=== PATIENT | female | born 1945 | race African-American/Black ===

== ENCOUNTER 2017-12-13 14:07 | Inpatient (IN) ==
[2017-12-14] MEDS ORDERED: CLOPIDOGREL 75 MG TABLET PO ONE (08:16)
[2017-12-14] MEDS ORDERED: GLUCAGON 1 MG VIAL IM PRN (08:25)
[2017-12-14] MEDS ORDERED: DEXTROSE 50% 25 GM/50 ML VIAL IV PRN (08:25)
[2017-12-14] MEDS ORDERED: MAGNESIUM SULF RIDER 2 GM in PREMIX 1 EACH IV PRN ×2 (08:39→22:11)
[2017-12-14] MEDS ORDERED: MAGNESIUM SULF RIDER 4 GM in PREMIX 1 EACH IV PRN (08:39)
[2017-12-14] MEDS ORDERED: ZALEPLON 5 MG CAPSULE PO PRN (08:39)
[2017-12-14] MEDS ORDERED: ONDANSETRON 4 MG/2 ML VIAL IV PRN (08:39)
[2017-12-14] MEDS ORDERED: CILOSTAZOL 50 MG TABLET PO SCH (09:00)
[2017-12-14] MEDS ORDERED: POTASSIUM CHLORIDE RIDER 10 MEQ in PREMIX 1 EACH IV PRN ×2 (09:04→22:11)
[2017-12-14] MEDS ORDERED: diphenhydrAMINE CAP 25 MG CAPSULE PO ONE (09:04)
[2017-12-14] MEDS ORDERED: FUROSEMIDE 40 MG TABLET PO SCH (09:30)
[2017-12-14] MEDS: amLODIPine 5 MG TABLET PO SCH (10:22)
[2017-12-14] MEDS: ENOXAPARIN 40 MG/0.4 ML SYRINGE SUBCUT SCH (10:22)
[2017-12-14] MEDS: CARBIDOPA/LEVODOPA 25-100 MG TABLET PO SCH ×2 (10:22→21:18)
[2017-12-14] MEDS: RASAGILINE 0.5 MG TABLET PO SCH (10:22)
[2017-12-14] MEDS: PANTOPRAZOLE 40 MG TABLET PO SCH (10:23)
[2017-12-14] MEDS: CHOLECALCIFEROL 1,000 UNIT TABLET PO SCH (10:23)
[2017-12-14] MEDS: ROSUVASTATIN 20 MG TABLET PO SCH (10:23)
[2017-12-14] MEDS: ASPIRIN CHEW 81 MG TABLET PO SCH (10:23)
[2017-12-14] MEDS: VITAMIN E 400 UNIT CAPSULE PO SCH (10:23)
[2017-12-14] MEDS: SODIUM CHLORIDE 0.45% 1,000 ML IV SCH ×2 (10:23→23:34)
[2017-12-14] MEDS: CLOPIDOGREL 75 MG TABLET PO SCH (10:23)
[2017-12-14] MEDS: MULTIVITAMIN (CENTRUM) TABLET PO SCH (10:23)
[2017-12-14] MEDS: INSULIN REGULAR 100 UNIT/ML SUBCUT SCH ×3 (12:25→21:19)
[2017-12-14] MEDS: INSULIN GLARGINE 100 UNIT/ML SUBCUT SCH (21:18)
[2017-12-14] MEDS: CILOSTAZOL 50 MG TABLET PO SCH (21:18)
[2017-12-14] MEDS ORDERED: DIAZEPAM 5 MG TABLET PO ONE (22:30)
[2017-12-15 06:41] LABS: Basophils # 0.1 10*3/uL (0.0-0.2); Basophils % 0.5 % (0.0-0.8); Eosinophils # 0.2 10*3/uL (0.0-0.87); Eosinophils % 1.4 % (0.00-10.9); Hematocrit 30.9 VOL% (35.7-47.0); Hemoglobin 9.6 GM/DL (12.0-16.0); Immature Granulocytes % 0.4 %; Immature Granulocytes Absolute 0.05 #; Lymphocytes # 0.8 10*3/uL (1.4-4.0); Lymphocytes % 6.4 % (21.3-54.2); Mean Corpuscular HGB Conc 31.1 GM/DL (32-36); Mean Corpuscular Hemoglobin 28 PG (27-34); Mean Corpuscular Volume 88.8 FL (87-102); Mean Platelet Volume 11.7 FL (9.6-12.0); Monocytes # 1.1 10*3/uL (0.11-0.8); Monocytes % 8.9 % (1.7-12.7); Neutrophils # 10.2 10*3/uL (1.4-7.4); Neutrophils % 82.4 % (38.7-73.9); Platelet Count 275 T/CUMM (130-400); Red Blood Count 3.48 MC/CUMM (3.8-5.5); Red Cell Distribution Width 13.9 % (9.3-17.3); White Blood Count 12.4 T/CUMM (4-12)
[2017-12-15 07:19] LABS: Osmolality,Calculated 288.5 MOS/KG (273-304); Potassium 3.7 MMOL/L (3.5-5.1)
[2017-12-15 07:41] LABS: Risk Ratio 2.16; VLDL CHOLESTEROL 13.8 MG/DL
[2017-12-15] MEDS ORDERED: DIAZEPAM 5 MG TABLET ONE (08:57)
[2017-12-15] MEDS ORDERED: diphenhydrAMINE CAP 25 MG CAPSULE ONE (08:57)
[2017-12-15] MEDS: amLODIPine 5 MG TABLET PO SCH (12:21)
[2017-12-15] MEDS: CLOPIDOGREL 75 MG TABLET PO SCH (12:21)
[2017-12-15] MEDS: RASAGILINE 0.5 MG TABLET PO SCH (12:21)
[2017-12-15] MEDS: ASPIRIN CHEW 81 MG TABLET PO SCH (12:22)
[2017-12-15] MEDS: CARBIDOPA/LEVODOPA 25-100 MG TABLET PO SCH ×2 (12:22→20:59)
[2017-12-15] MEDS: CILOSTAZOL 50 MG TABLET PO SCH ×2 (12:22→20:59)
[2017-12-15] MEDS: ENOXAPARIN 40 MG/0.4 ML SYRINGE SUBCUT SCH (12:23)
[2017-12-15] MEDS: PANTOPRAZOLE 40 MG TABLET PO SCH (12:23)
[2017-12-15] MEDS: ROSUVASTATIN 20 MG TABLET PO SCH (12:24)
[2017-12-15] MEDS ORDERED: LIDOCAINE 1% 20 ML VIAL ONE (12:50)
[2017-12-15] MEDS ORDERED: HYDROmorphone 2 MG/1 ML VIAL ONE ×2 (12:56→14:33)
[2017-12-15] MEDS ORDERED: MIDAZOLAM 2 MG/2 ML VIAL ONE (12:57)
[2017-12-15] MEDS ORDERED: HEPARIN 5,000 UNIT/1 ML VIAL ONE ×2 (13:08→13:25)
[2017-12-15] MEDS ORDERED: NITROGLYCERIN 2% OINT 1 INCH/GM PACK TOP ONE (14:01)
[2017-12-15] MEDS ORDERED: TIROFIBAN 5,000 MCG/100 ML PREMIX IV ONE (14:12)
[2017-12-15] MEDS ORDERED: NITROGLYCERIN SL 0.4 MG TABLET SL PRN (14:43)
[2017-12-15] MEDS ORDERED: ACETAMINOPHEN 325 MG TABLET PO PRN (14:43)
[2017-12-15] MEDS ORDERED: HYDROmorphone 2 MG/1 ML VIAL IV PRN (14:43)
[2017-12-15] MEDS: MULTIVITAMIN (CENTRUM) TABLET PO SCH (15:25)
[2017-12-15] MEDS: INSULIN REGULAR 100 UNIT/ML SUBCUT SCH ×4 (17:06→20:57)
[2017-12-15] MEDS: VITAMIN E 400 UNIT CAPSULE PO SCH (17:09)
[2017-12-15] MEDS: CHOLECALCIFEROL 1,000 UNIT TABLET PO SCH (17:10)
[2017-12-15] MEDS: SODIUM CHLORIDE 0.45% 1,000 ML IV SCH (18:42)
[2017-12-15] MEDS: INSULIN GLARGINE 100 UNIT/ML SUBCUT SCH (20:57)
[2017-12-16] MEDS: SODIUM CHLORIDE 0.45% 1,000 ML IV SCH ×2 (01:00→14:56)
[2017-12-16 06:20] LABS: Basophils # 0.1 10*3/uL (0.0-0.2); Basophils % 0.4 % (0.0-0.8); Eosinophils # 0.1 10*3/uL (0.0-0.87); Eosinophils % 0.5 % (0.00-10.9); Hematocrit 27.7 VOL% (35.7-47.0); Hemoglobin 8.8 GM/DL (12.0-16.0); Immature Granulocytes % 0.6 %; Immature Granulocytes Absolute 0.07 #; Lymphocytes # 0.9 10*3/uL (1.4-4.0); Lymphocytes % 8.4 % (21.3-54.2); Mean Corpuscular HGB Conc 31.8 GM/DL (32-36); Mean Corpuscular Hemoglobin 28 PG (27-34); Mean Corpuscular Volume 87.1 FL (87-102); Mean Platelet Volume 11.5 FL (9.6-12.0); Monocytes # 1.1 10*3/uL (0.11-0.8); Monocytes % 9.8 % (1.7-12.7); Neutrophils % 80.3 % (38.7-73.9); Platelet Count 290 T/CUMM (130-400); Red Blood Count 3.18 MC/CUMM (3.8-5.5); Red Cell Distribution Width 14.2 % (9.3-17.3); White Blood Count 11.2 T/CUMM (4-12)
[2017-12-16 06:57] LABS: Osmolality,Calculated 291.5 MOS/KG (273-304)
[2017-12-16] MEDS: INSULIN REGULAR 100 UNIT/ML SUBCUT SCH ×4 (08:11→21:25)
[2017-12-16] MEDS: VITAMIN E 400 UNIT CAPSULE PO SCH (09:46)
[2017-12-16] MEDS: ROSUVASTATIN 20 MG TABLET PO SCH (09:47)
[2017-12-16] MEDS: CHOLECALCIFEROL 1,000 UNIT TABLET PO SCH (09:47)
[2017-12-16] MEDS: CLOPIDOGREL 75 MG TABLET PO SCH (09:47)
[2017-12-16] MEDS: ASPIRIN CHEW 81 MG TABLET PO SCH (09:48)
[2017-12-16] MEDS: ASPIRIN EC 81 MG TABLET PO SCH (09:48)
[2017-12-16] MEDS: CARBIDOPA/LEVODOPA 25-100 MG TABLET PO SCH ×2 (09:48→21:27)
[2017-12-16] MEDS: PANTOPRAZOLE 40 MG TABLET PO SCH (09:48)
[2017-12-16] MEDS: ENOXAPARIN 40 MG/0.4 ML SYRINGE SUBCUT SCH (09:48)
[2017-12-16] MEDS: amLODIPine 5 MG TABLET PO SCH (09:48)
[2017-12-16] MEDS: RASAGILINE 0.5 MG TABLET PO SCH (09:49)
[2017-12-16] MEDS: CILOSTAZOL 50 MG TABLET PO SCH ×2 (09:49→21:27)
[2017-12-16] MEDS: MULTIVITAMIN (CENTRUM) TABLET PO SCH (10:08)
[2017-12-16] MEDS: INSULIN GLARGINE 100 UNIT/ML SUBCUT SCH (21:26)
[2017-12-16 22:15] LABS: Apearance,Urine CLOUDY (Clear); Bacteria,Urine Many /HPF (Few); Bilirubin,Urine Negative (Negative); Blood, Urine Small mg/dL (Negative); Glucose,Urine (UA) 50 mg/dL (Negative); Ketones,Urine Negative (Negative); Mucus,Urine Occasional /LPF (Occasional); Nitrite,Urine Negative (Negative); Protein,Urine Negative; RBC,Urine 44 /HPF (0-4); Squamous Epithelial Cell,Urine Few /HPF (0-10); Urine Color Amber (Yellow); Urine Specific Gravity 1.045 (1.001-1.035)
[2017-12-17] MEDS: SODIUM CHLORIDE 0.45% 1,000 ML IV SCH ×2 (05:26→18:02)
[2017-12-17 06:50] LABS: Basophils # 0.1 10*3/uL (0.0-0.2); Basophils % 0.4 % (0.0-0.8); Eosinophils # 0.1 10*3/uL (0.0-0.87); Eosinophils % 0.8 % (0.00-10.9); Hematocrit 26.2 VOL% (35.7-47.0); Hemoglobin 8.4 GM/DL (12.0-16.0); Immature Granulocytes % 0.6 %; Immature Granulocytes Absolute 0.08 #; Lymphocytes % 8.1 % (21.3-54.2); Mean Corpuscular HGB Conc 32.1 GM/DL (32-36); Mean Corpuscular Hemoglobin 28 PG (27-34); Mean Platelet Volume 11.4 FL (9.6-12.0); Monocytes # 1.3 10*3/uL (0.11-0.8); Monocytes % 9.7 % (1.7-12.7); Neutrophils # 10.3 10*3/uL (1.4-7.4); Neutrophils % 80.4 % (38.7-73.9); Platelet Count 297 T/CUMM (130-400); Red Blood Count 3.01 MC/CUMM (3.8-5.5); White Blood Count 12.8 T/CUMM (4-12)
[2017-12-17 07:17] LABS: Calcium 7.7 MG/DL (8.5-10.1); Potassium 3.8 MMOL/L (3.5-5.1)
[2017-12-17] MEDS: INSULIN REGULAR 100 UNIT/ML SUBCUT SCH ×4 (09:14→21:33)
[2017-12-17] MEDS: LACTULOSE 20 GM/30 ML UDCUP PO PRN (09:15)
[2017-12-17] MEDS: ENOXAPARIN 30 MG/0.3 ML SYRINGE SUBCUT SCH (09:15)
[2017-12-17] MEDS: ASPIRIN CHEW 81 MG TABLET PO SCH (09:18)
[2017-12-17] MEDS: RASAGILINE 0.5 MG TABLET PO SCH (09:18)
[2017-12-17] MEDS: MULTIVITAMIN (CENTRUM) TABLET PO SCH (09:19)
[2017-12-17] MEDS: CILOSTAZOL 50 MG TABLET PO SCH ×2 (09:19→21:34)
[2017-12-17] MEDS: CHOLECALCIFEROL 1,000 UNIT TABLET PO SCH (09:19)
[2017-12-17] MEDS: ROSUVASTATIN 20 MG TABLET PO SCH (09:20)
[2017-12-17] MEDS: CARBIDOPA/LEVODOPA 25-100 MG TABLET PO SCH ×2 (09:20→21:34)
[2017-12-17] MEDS: PANTOPRAZOLE 40 MG TABLET PO SCH (09:20)
[2017-12-17] MEDS: CLOPIDOGREL 75 MG TABLET PO SCH (09:20)
[2017-12-17] MEDS: VITAMIN E 400 UNIT CAPSULE PO SCH (09:20)
[2017-12-17] MEDS: amLODIPine 5 MG TABLET PO SCH (09:21)
[2017-12-17] MEDS: ASPIRIN EC 81 MG TABLET PO SCH (10:13)
[2017-12-17 14:40] LABS: ABG Base Excess -1.4 MMOL/L (-2.5-2.5); ABG HCO3 23.2 MMOL/L (20-26); ABG Oxygen Saturation 96.1 % (95-100); ABG PCO2 30.6 MM HG (35-48); ABG PH 7.461 (7.35-7.45); ABG PO2 76.3 MM HG (80-95); ABG TCO2 20.1 MMOL/L (23-27); Allen Test Positive; Pt O2 Delivery Device Room Air
[2017-12-17] MEDS ORDERED: ALBUTEROL 1.25 MG/3 ML NEB RESP TX PRN (14:43)
[2017-12-17] MEDS ORDERED: LEVOFLOXACIN 500 MG TABLET PO ONE (15:00)
[2017-12-17] MEDS: PRAMIPEXOLE 1 MG TABLET PO SCH ×2 (15:43→21:34)
[2017-12-17] MEDS: POLYETHYLENE GLYCOL POWDER 17 GM PACK PO SCH (15:44)
[2017-12-17] MEDS: INSULIN GLARGINE 100 UNIT/ML SUBCUT SCH (21:35)
[2017-12-18] MEDS: SODIUM CHLORIDE 0.45% 1,000 ML IV SCH ×2 (05:49→22:20)
[2017-12-18 07:09] LABS: Calcium 7.9 MG/DL (8.5-10.1); Osmolality,Calculated 288.1 MOS/KG (273-304); Potassium 4.3 MMOL/L (3.5-5.1)
[2017-12-18] MEDS: INSULIN REGULAR 100 UNIT/ML SUBCUT SCH ×4 (08:32→22:19)
[2017-12-18] MEDS: amLODIPine 5 MG TABLET PO SCH (09:09)
[2017-12-18] MEDS: ASPIRIN CHEW 81 MG TABLET PO SCH (09:11)
[2017-12-18] MEDS: ASPIRIN EC 81 MG TABLET PO SCH (09:11)
[2017-12-18] MEDS: ROSUVASTATIN 20 MG TABLET PO SCH (09:12)
[2017-12-18] MEDS: PANTOPRAZOLE 40 MG TABLET PO SCH (09:12)
[2017-12-18] MEDS: RASAGILINE 0.5 MG TABLET PO SCH (09:12)
[2017-12-18] MEDS: PRAMIPEXOLE 1 MG TABLET PO SCH ×3 (09:12→21:21)
[2017-12-18] MEDS: CILOSTAZOL 50 MG TABLET PO SCH ×2 (09:12→21:21)
[2017-12-18] MEDS: POLYETHYLENE GLYCOL POWDER 17 GM PACK PO SCH (09:12)
[2017-12-18] MEDS: ENOXAPARIN 30 MG/0.3 ML SYRINGE SUBCUT SCH (09:12)
[2017-12-18] MEDS: MULTIVITAMIN (CENTRUM) TABLET PO SCH (09:12)
[2017-12-18] MEDS: CLOPIDOGREL 75 MG TABLET PO SCH (09:12)
[2017-12-18] MEDS: CARBIDOPA/LEVODOPA 25-100 MG TABLET PO SCH ×2 (09:12→21:21)
[2017-12-18] MEDS: VITAMIN E 400 UNIT CAPSULE PO SCH (09:13)
[2017-12-18] MEDS: CHOLECALCIFEROL 1,000 UNIT TABLET PO SCH (09:13)
[2017-12-18] MEDS ORDERED: BUPIVACAINE 0.25% 50 ML VIAL ONE (14:51)
[2017-12-18] MEDS ORDERED: DEXTROSE 50% 25 GM/50 ML VIAL IV PRN (16:05)
[2017-12-18] MEDS ORDERED: GLUCAGON 1 MG VIAL IM PRN (16:05)
[2017-12-18] MEDS ORDERED: PROPOFOL 200 MG/20 ML VIAL IV ONE (16:18)
[2017-12-18] MEDS ORDERED: KETOROLAC 30 MG/1 ML VIAL ONE (16:19)
[2017-12-18] MEDS ORDERED: ONDANSETRON 4 MG/2 ML VIAL ONE (16:19)
[2017-12-18] MEDS ORDERED: fentaNYL 100 MCG/2 ML VIAL ONE (16:19)
[2017-12-18] MEDS ORDERED: SEVOFLURANE 1 UNIT/15 MINUTE INH ONE (16:19)
[2017-12-18] MEDS ORDERED: MIDAZOLAM 2 MG/2 ML VIAL ONE (16:19)
[2017-12-18] MEDS ORDERED: PHENYLEPHRINE 1 MG/10 ML SYRINGE IV ONE (16:19)
[2017-12-18] MEDS: HYDROmorphone 2 MG/1 ML VIAL IV PRN (20:46)
[2017-12-18] MEDS: INSULIN GLARGINE 100 UNIT/ML SUBCUT SCH (21:19)
[2017-12-18] MEDS: TRAVOPROST 0.004% OPH SOLN 2.5 ML BOTTLE BOTH EYES SCH (22:22)
[2017-12-19 07:08] LABS: Osmolality,Calculated 285.1 MOS/KG (273-304); Potassium 4.6 MMOL/L (3.5-5.1)
[2017-12-19] MEDS: HYDROmorphone 2 MG/1 ML VIAL IV PRN ×3 (09:06→21:55)
[2017-12-19] MEDS: CHOLECALCIFEROL 1,000 UNIT TABLET PO SCH (09:08)
[2017-12-19] MEDS: ROSUVASTATIN 20 MG TABLET PO SCH (09:08)
[2017-12-19] MEDS: PRAMIPEXOLE 1 MG TABLET PO SCH ×3 (09:09→21:54)
[2017-12-19] MEDS: RASAGILINE 0.5 MG TABLET PO SCH (09:09)
[2017-12-19] MEDS: CILOSTAZOL 50 MG TABLET PO SCH ×2 (09:09→21:54)
[2017-12-19] MEDS: VITAMIN E 400 UNIT CAPSULE PO SCH (09:10)
[2017-12-19] MEDS: CARBIDOPA/LEVODOPA 25-100 MG TABLET PO SCH ×2 (09:10→21:54)
[2017-12-19] MEDS: amLODIPine 5 MG TABLET PO SCH (09:10)
[2017-12-19] MEDS: CLOPIDOGREL 75 MG TABLET PO SCH (09:10)
[2017-12-19] MEDS: LEVOFLOXACIN 250 MG TABLET PO SCH (09:11)
[2017-12-19] MEDS: PANTOPRAZOLE 40 MG TABLET PO SCH (09:11)
[2017-12-19] MEDS: MULTIVITAMIN (CENTRUM) TABLET PO SCH (09:11)
[2017-12-19] MEDS: ASPIRIN EC 81 MG TABLET PO SCH (09:11)
[2017-12-19] MEDS: POLYETHYLENE GLYCOL POWDER 17 GM PACK PO SCH (09:13)
[2017-12-19] MEDS: ENOXAPARIN 30 MG/0.3 ML SYRINGE SUBCUT SCH (09:13)
[2017-12-19] MEDS: INSULIN REGULAR 100 UNIT/ML SUBCUT SCH ×4 (09:20→21:56)
[2017-12-19] MEDS: ASPIRIN CHEW 81 MG TABLET PO SCH (10:02)
[2017-12-19] MEDS: BACITRACIN OINT 0.9 GM PACK TOP SCH (10:33)
[2017-12-19] MEDS: SODIUM HYPOCHLORITE 0.25% IRRIG 473 ML BOTTLE TOP SCH (10:33)
[2017-12-19] MEDS: SODIUM CHLORIDE 0.45% 1,000 ML IV SCH ×2 (14:16→23:17)
[2017-12-19] MEDS: INSULIN GLARGINE 100 UNIT/ML SUBCUT SCH (21:54)
[2017-12-19] MEDS: TRAVOPROST 0.004% OPH SOLN 2.5 ML BOTTLE BOTH EYES SCH (22:01)
[2017-12-20 06:33] LABS: Calcium 7.8 MG/DL (8.5-10.1); Osmolality,Calculated 285.1 MOS/KG (273-304); Potassium 4.5 MMOL/L (3.5-5.1)
[2017-12-20] MEDS: HYDROmorphone 2 MG/1 ML VIAL IV PRN ×3 (07:51→23:45)
[2017-12-20] MEDS: INSULIN REGULAR 100 UNIT/ML SUBCUT SCH ×4 (07:58→21:23)
[2017-12-20] MEDS: ROSUVASTATIN 20 MG TABLET PO SCH (09:37)
[2017-12-20] MEDS: PANTOPRAZOLE 40 MG TABLET PO SCH (09:37)
[2017-12-20] MEDS: CILOSTAZOL 50 MG TABLET PO SCH ×2 (09:37→21:50)
[2017-12-20] MEDS: RASAGILINE 0.5 MG TABLET PO SCH (09:37)
[2017-12-20] MEDS: ASPIRIN EC 81 MG TABLET PO SCH (09:37)
[2017-12-20] MEDS: CARBIDOPA/LEVODOPA 25-100 MG TABLET PO SCH ×2 (09:37→21:51)
[2017-12-20] MEDS: POLYETHYLENE GLYCOL POWDER 17 GM PACK PO SCH (09:37)
[2017-12-20] MEDS: PRAMIPEXOLE 1 MG TABLET PO SCH ×3 (09:37→21:51)
[2017-12-20] MEDS: CLOPIDOGREL 75 MG TABLET PO SCH (09:37)
[2017-12-20] MEDS: CHOLECALCIFEROL 1,000 UNIT TABLET PO SCH (09:37)
[2017-12-20] MEDS: ENOXAPARIN 30 MG/0.3 ML SYRINGE SUBCUT SCH (09:37)
[2017-12-20] MEDS: amLODIPine 5 MG TABLET PO SCH (09:38)
[2017-12-20] MEDS: SODIUM CHLORIDE 0.45% 1,000 ML IV SCH ×2 (10:06→21:51)
[2017-12-20] MEDS: SODIUM HYPOCHLORITE 0.25% IRRIG 473 ML BOTTLE TOP SCH (10:30)
[2017-12-20] MEDS: BACITRACIN OINT 0.9 GM PACK TOP SCH (10:51)
[2017-12-20] MEDS: INSULIN GLARGINE 100 UNIT/ML SUBCUT SCH (21:23)
[2017-12-20] MEDS: TRAVOPROST 0.004% OPH SOLN 2.5 ML BOTTLE BOTH EYES SCH (21:51)
[2017-12-21] MEDS: SODIUM CHLORIDE 0.45% 1,000 ML IV SCH ×3 (00:43→15:05)
[2017-12-21] MEDS: HYDROmorphone 2 MG/1 ML VIAL IV PRN ×3 (08:57→20:46)
[2017-12-21] MEDS: LEVOFLOXACIN 250 MG TABLET PO SCH (09:00)
[2017-12-21] MEDS: CHOLECALCIFEROL 1,000 UNIT TABLET PO SCH (09:00)
[2017-12-21] MEDS: ASPIRIN EC 81 MG TABLET PO SCH (09:00)
[2017-12-21] MEDS: amLODIPine 5 MG TABLET PO SCH (09:00)
[2017-12-21] MEDS: CLOPIDOGREL 75 MG TABLET PO SCH (09:00)
[2017-12-21] MEDS: CARBIDOPA/LEVODOPA 25-100 MG TABLET PO SCH ×2 (09:00→20:46)
[2017-12-21] MEDS: PRAMIPEXOLE 1 MG TABLET PO SCH ×3 (09:00→20:46)
[2017-12-21] MEDS: ROSUVASTATIN 20 MG TABLET PO SCH (09:01)
[2017-12-21] MEDS: PANTOPRAZOLE 40 MG TABLET PO SCH (09:01)
[2017-12-21] MEDS: RASAGILINE 0.5 MG TABLET PO SCH (09:01)
[2017-12-21] MEDS: ENOXAPARIN 30 MG/0.3 ML SYRINGE SUBCUT SCH (09:01)
[2017-12-21] MEDS: CILOSTAZOL 50 MG TABLET PO SCH ×2 (09:01→20:45)
[2017-12-21] MEDS: POLYETHYLENE GLYCOL POWDER 17 GM PACK PO SCH (09:01)
[2017-12-21] MEDS: INSULIN REGULAR 100 UNIT/ML SUBCUT SCH ×4 (09:02→22:44)
[2017-12-21] MEDS: SODIUM HYPOCHLORITE 0.25% IRRIG 473 ML BOTTLE TOP SCH (09:02)
[2017-12-21] MEDS: TRAVOPROST 0.004% OPH SOLN 2.5 ML BOTTLE BOTH EYES SCH (22:36)
[2017-12-22] MEDS: SODIUM CHLORIDE 0.45% 1,000 ML IV SCH ×2 (01:30→16:57)
[2017-12-22] MEDS: HYDROmorphone 2 MG/1 ML VIAL IV PRN ×4 (01:31→21:24)
[2017-12-22 07:08] LABS: Calcium 7.9 MG/DL (8.5-10.1); Osmolality,Calculated 282.7 MOS/KG (273-304); Potassium 4.4 MMOL/L (3.5-5.1)
[2017-12-22] MEDS: INSULIN REGULAR 100 UNIT/ML SUBCUT SCH ×4 (08:46→21:13)
[2017-12-22] MEDS: RASAGILINE 0.5 MG TABLET PO SCH (09:51)
[2017-12-22] MEDS: CLOPIDOGREL 75 MG TABLET PO SCH (09:51)
[2017-12-22] MEDS: CARBIDOPA/LEVODOPA 25-100 MG TABLET PO SCH ×2 (09:51→21:13)
[2017-12-22] MEDS: PANTOPRAZOLE 40 MG TABLET PO SCH (09:51)
[2017-12-22] MEDS: amLODIPine 5 MG TABLET PO SCH (09:52)
[2017-12-22] MEDS: ROSUVASTATIN 20 MG TABLET PO SCH (09:52)
[2017-12-22] MEDS: CHOLECALCIFEROL 1,000 UNIT TABLET PO SCH (09:52)
[2017-12-22] MEDS: PRAMIPEXOLE 1 MG TABLET PO SCH ×3 (09:52→21:13)
[2017-12-22] MEDS: SODIUM HYPOCHLORITE 0.25% IRRIG 473 ML BOTTLE TOP SCH (09:52)
[2017-12-22] MEDS: ASPIRIN EC 81 MG TABLET PO SCH (09:52)
[2017-12-22] MEDS: ENOXAPARIN 30 MG/0.3 ML SYRINGE SUBCUT SCH (09:52)
[2017-12-22] MEDS: CILOSTAZOL 50 MG TABLET PO SCH ×2 (09:52→21:13)
[2017-12-22] MEDS: POLYETHYLENE GLYCOL POWDER 17 GM PACK PO SCH (09:53)
[2017-12-22] MEDS ORDERED: TUBERCULIN SKIN TEST 0.1 ML SYRINGE INTRADERM ONE (11:22)
[2017-12-22] MEDS: TRAVOPROST 0.004% OPH SOLN 2.5 ML BOTTLE BOTH EYES SCH (21:24)
[2017-12-23] MEDS: HYDROmorphone 2 MG/1 ML VIAL IV PRN ×4 (02:36→16:23)
[2017-12-23] MEDS: SODIUM CHLORIDE 0.45% 1,000 ML IV SCH ×2 (03:28→17:39)
[2017-12-23 05:56] LABS: Calcium 7.9 MG/DL (8.5-10.1); Osmolality,Calculated 280.7 MOS/KG (273-304); Potassium 4.4 MMOL/L (3.5-5.1)
[2017-12-23] MEDS: INSULIN REGULAR 100 UNIT/ML SUBCUT SCH ×4 (09:15→21:34)
[2017-12-23] MEDS: CILOSTAZOL 50 MG TABLET PO SCH ×2 (09:15→21:34)
[2017-12-23] MEDS: CARBIDOPA/LEVODOPA 25-100 MG TABLET PO SCH ×2 (09:15→21:34)
[2017-12-23] MEDS: LACTULOSE 20 GM/30 ML UDCUP PO PRN (09:15)
[2017-12-23] MEDS: CHOLECALCIFEROL 1,000 UNIT TABLET PO SCH (09:15)
[2017-12-23] MEDS: POLYETHYLENE GLYCOL POWDER 17 GM PACK PO SCH (09:15)
[2017-12-23] MEDS: ENOXAPARIN 30 MG/0.3 ML SYRINGE SUBCUT SCH (09:15)
[2017-12-23] MEDS: LEVOFLOXACIN 250 MG TABLET PO SCH (09:16)
[2017-12-23] MEDS: RASAGILINE 0.5 MG TABLET PO SCH (09:16)
[2017-12-23] MEDS: amLODIPine 5 MG TABLET PO SCH (09:16)
[2017-12-23] MEDS: CLOPIDOGREL 75 MG TABLET PO SCH (09:16)
[2017-12-23] MEDS: PRAMIPEXOLE 1 MG TABLET PO SCH ×3 (09:16→21:34)
[2017-12-23] MEDS: DOCUSATE SODIUM 100 MG CAPSULE PO PRN (09:16)
[2017-12-23] MEDS: ROSUVASTATIN 20 MG TABLET PO SCH (09:16)
[2017-12-23] MEDS: ASPIRIN EC 81 MG TABLET PO SCH (09:16)
[2017-12-23] MEDS: PANTOPRAZOLE 40 MG TABLET PO SCH (09:17)
[2017-12-23] MEDS: SODIUM HYPOCHLORITE 0.25% IRRIG 473 ML BOTTLE TOP SCH (09:18)
[2017-12-23] MEDS: TRAVOPROST 0.004% OPH SOLN 2.5 ML BOTTLE BOTH EYES SCH (21:36)
[2017-12-24] MEDS: HYDROmorphone 2 MG/1 ML VIAL IV PRN ×5 (03:55→22:44)
[2017-12-24] MEDS: SODIUM CHLORIDE 0.45% 1,000 ML IV SCH ×2 (06:42→21:41)
[2017-12-24 07:08] LABS: Osmolality,Calculated 278.7 MOS/KG (273-304); Potassium 4.2 MMOL/L (3.5-5.1)
[2017-12-24] MEDS: ROSUVASTATIN 20 MG TABLET PO SCH (09:25)
[2017-12-24] MEDS: CHOLECALCIFEROL 1,000 UNIT TABLET PO SCH (09:25)
[2017-12-24] MEDS: ENOXAPARIN 30 MG/0.3 ML SYRINGE SUBCUT SCH (09:25)
[2017-12-24] MEDS: CILOSTAZOL 50 MG TABLET PO SCH ×2 (09:25→21:37)
[2017-12-24] MEDS: POLYETHYLENE GLYCOL POWDER 17 GM PACK PO SCH (09:25)
[2017-12-24] MEDS: INSULIN REGULAR 100 UNIT/ML SUBCUT SCH ×4 (09:25→21:43)
[2017-12-24] MEDS: amLODIPine 5 MG TABLET PO SCH (09:25)
[2017-12-24] MEDS: RASAGILINE 0.5 MG TABLET PO SCH (09:25)
[2017-12-24] MEDS: ASPIRIN EC 81 MG TABLET PO SCH (09:26)
[2017-12-24] MEDS: PANTOPRAZOLE 40 MG TABLET PO SCH (09:26)
[2017-12-24] MEDS: SODIUM HYPOCHLORITE 0.25% IRRIG 473 ML BOTTLE TOP SCH (09:26)
[2017-12-24] MEDS: CLOPIDOGREL 75 MG TABLET PO SCH (09:26)
[2017-12-24] MEDS: PRAMIPEXOLE 1 MG TABLET PO SCH ×3 (09:26→21:37)
[2017-12-24] MEDS: CARBIDOPA/LEVODOPA 25-100 MG TABLET PO SCH ×2 (09:26→21:37)
[2017-12-24] MEDS: TRAVOPROST 0.004% OPH SOLN 2.5 ML BOTTLE BOTH EYES SCH (21:43)
[2017-12-25] MEDS: HYDROmorphone 2 MG/1 ML VIAL IV PRN ×2 (04:40→14:04)
[2017-12-25] MEDS: INSULIN REGULAR 100 UNIT/ML SUBCUT SCH ×4 (08:41→21:13)
[2017-12-25] MEDS: ASPIRIN EC 81 MG TABLET PO SCH (08:43)
[2017-12-25] MEDS: RASAGILINE 0.5 MG TABLET PO SCH (08:43)
[2017-12-25] MEDS: ENOXAPARIN 30 MG/0.3 ML SYRINGE SUBCUT SCH (08:44)
[2017-12-25] MEDS: LEVOFLOXACIN 250 MG TABLET PO SCH (08:44)
[2017-12-25] MEDS: ROSUVASTATIN 20 MG TABLET PO SCH (08:44)
[2017-12-25] MEDS: POLYETHYLENE GLYCOL POWDER 17 GM PACK PO SCH (08:45)
[2017-12-25] MEDS: CLOPIDOGREL 75 MG TABLET PO SCH (08:45)
[2017-12-25] MEDS: PRAMIPEXOLE 1 MG TABLET PO SCH ×3 (08:45→21:13)
[2017-12-25] MEDS: amLODIPine 5 MG TABLET PO SCH (08:45)
[2017-12-25] MEDS: CILOSTAZOL 50 MG TABLET PO SCH ×2 (08:46→21:13)
[2017-12-25] MEDS: CARBIDOPA/LEVODOPA 25-100 MG TABLET PO SCH ×2 (08:46→21:13)
[2017-12-25] MEDS: PANTOPRAZOLE 40 MG TABLET PO SCH (08:46)
[2017-12-25] MEDS: CHOLECALCIFEROL 1,000 UNIT TABLET PO SCH (08:46)
[2017-12-25] MEDS: SODIUM HYPOCHLORITE 0.25% IRRIG 473 ML BOTTLE TOP SCH (13:58)
[2017-12-25] MEDS: SODIUM CHLORIDE 0.45% 1,000 ML IV SCH (21:12)
[2017-12-25] MEDS: INSULIN GLARGINE 100 UNIT/ML SUBCUT SCH ×2 (21:14→21:17)
[2017-12-25] MEDS: TRAVOPROST 0.004% OPH SOLN 2.5 ML BOTTLE BOTH EYES SCH (21:15)
[2017-12-26] MEDS: HYDROmorphone 2 MG/1 ML VIAL IV PRN (03:08)
[2017-12-26] MEDS: INSULIN GLARGINE 100 UNIT/ML SUBCUT SCH ×2 (05:06→21:11)
[2017-12-26] MEDS: INSULIN REGULAR 100 UNIT/ML SUBCUT SCH ×4 (08:40→21:11)
[2017-12-26] MEDS: CARBIDOPA/LEVODOPA 25-100 MG TABLET PO SCH ×2 (08:41→20:14)
[2017-12-26] MEDS: ROSUVASTATIN 20 MG TABLET PO SCH (08:41)
[2017-12-26] MEDS: amLODIPine 5 MG TABLET PO SCH (08:41)
[2017-12-26] MEDS: PANTOPRAZOLE 40 MG TABLET PO SCH (08:41)
[2017-12-26] MEDS: ASPIRIN EC 81 MG TABLET PO SCH (08:41)
[2017-12-26] MEDS: ENOXAPARIN 30 MG/0.3 ML SYRINGE SUBCUT SCH (08:41)
[2017-12-26] MEDS: CHOLECALCIFEROL 1,000 UNIT TABLET PO SCH (08:41)
[2017-12-26] MEDS: CLOPIDOGREL 75 MG TABLET PO SCH (08:41)
[2017-12-26] MEDS: CILOSTAZOL 50 MG TABLET PO SCH ×2 (08:41→20:14)
[2017-12-26] MEDS: PRAMIPEXOLE 1 MG TABLET PO SCH ×3 (08:41→20:14)
[2017-12-26] MEDS: RASAGILINE 0.5 MG TABLET PO SCH (08:41)
[2017-12-26] MEDS: SODIUM HYPOCHLORITE 0.25% IRRIG 473 ML BOTTLE TOP SCH (08:42)
[2017-12-26] MEDS: POLYETHYLENE GLYCOL POWDER 17 GM PACK PO SCH (08:42)
[2017-12-26] MEDS: AMOXICILLIN 875 MG TABLET PO SCH ×2 (13:16→20:14)
[2017-12-26] MEDS: SODIUM CHLORIDE 0.45% 1,000 ML IV SCH ×2 (13:41)
[2017-12-26] MEDS: TRAVOPROST 0.004% OPH SOLN 2.5 ML BOTTLE BOTH EYES SCH (20:25)
[2017-12-27] MEDS: ENOXAPARIN 30 MG/0.3 ML SYRINGE SUBCUT SCH (08:36)
[2017-12-27] MEDS: LEVOFLOXACIN 250 MG TABLET PO SCH (08:37)
[2017-12-27] MEDS: PANTOPRAZOLE 40 MG TABLET PO SCH (08:38)
[2017-12-27] MEDS: amLODIPine 5 MG TABLET PO SCH (08:38)
[2017-12-27] MEDS: RASAGILINE 0.5 MG TABLET PO SCH (08:38)
[2017-12-27] MEDS: CLOPIDOGREL 75 MG TABLET PO SCH (08:38)
[2017-12-27] MEDS: CARBIDOPA/LEVODOPA 25-100 MG TABLET PO SCH ×2 (08:38→21:20)
[2017-12-27] MEDS: ROSUVASTATIN 20 MG TABLET PO SCH (08:38)
[2017-12-27] MEDS: AMOXICILLIN 875 MG TABLET PO SCH ×2 (08:38→21:20)
[2017-12-27] MEDS: ASPIRIN EC 81 MG TABLET PO SCH (08:38)
[2017-12-27] MEDS: CILOSTAZOL 50 MG TABLET PO SCH ×2 (08:38→21:20)
[2017-12-27] MEDS: PRAMIPEXOLE 1 MG TABLET PO SCH ×3 (08:38→21:20)
[2017-12-27] MEDS: CHOLECALCIFEROL 1,000 UNIT TABLET PO SCH (08:38)
[2017-12-27] MEDS: INSULIN REGULAR 100 UNIT/ML SUBCUT SCH ×4 (08:39→21:21)
[2017-12-27] MEDS: SODIUM HYPOCHLORITE 0.25% IRRIG 473 ML BOTTLE TOP SCH (08:39)
[2017-12-27] MEDS: POLYETHYLENE GLYCOL POWDER 17 GM PACK PO SCH (08:39)
[2017-12-27 11:56] LABS: Basophils # 0.1 10*3/uL (0.0-0.2); Basophils % 0.8 % (0.0-0.8); Eosinophils # 0.3 10*3/uL (0.0-0.87); Eosinophils % 3.2 % (0.00-10.9); Hematocrit 25.3 VOL% (35.7-47.0); Immature Granulocytes % 1.3 %; Immature Granulocytes Absolute 0.13 #; Lymphocytes # 1.2 10*3/uL (1.4-4.0); Lymphocytes % 11.7 % (21.3-54.2); Mean Corpuscular HGB Conc 31.6 GM/DL (32-36); Mean Corpuscular Hemoglobin 27 PG (27-34); Mean Corpuscular Volume 86.3 FL (87-102); Mean Platelet Volume 8.6 FL (9.6-12.0); Monocytes # 0.8 10*3/uL (0.11-0.8); Monocytes % 7.8 % (1.7-12.7); Neutrophils # 7.5 10*3/uL (1.4-7.4); Neutrophils % 75.2 % (38.7-73.9); Platelet Count 497 T/CUMM (130-400); Red Blood Count 2.93 MC/CUMM (3.8-5.5); Red Cell Distribution Width 15.1 % (9.3-17.3)
[2017-12-27] MEDS: INSULIN GLARGINE 100 UNIT/ML SUBCUT SCH (21:18)
[2017-12-27] MEDS: TRAVOPROST 0.004% OPH SOLN 2.5 ML BOTTLE BOTH EYES SCH (21:25)
[2017-12-28] MEDS: ROSUVASTATIN 20 MG TABLET PO SCH (09:12)
[2017-12-28] MEDS: INSULIN REGULAR 100 UNIT/ML SUBCUT SCH ×4 (09:12→21:51)
[2017-12-28] MEDS: ENOXAPARIN 30 MG/0.3 ML SYRINGE SUBCUT SCH (09:12)
[2017-12-28] MEDS: CILOSTAZOL 50 MG TABLET PO SCH ×2 (09:13→21:52)
[2017-12-28] MEDS: DOCUSATE SODIUM 100 MG CAPSULE PO PRN (09:13)
[2017-12-28] MEDS: RASAGILINE 0.5 MG TABLET PO SCH (09:13)
[2017-12-28] MEDS: AMOXICILLIN 875 MG TABLET PO SCH (09:13)
[2017-12-28] MEDS: CHOLECALCIFEROL 1,000 UNIT TABLET PO SCH (09:13)
[2017-12-28] MEDS: ASPIRIN EC 81 MG TABLET PO SCH (09:14)
[2017-12-28] MEDS: PRAMIPEXOLE 1 MG TABLET PO SCH ×3 (09:14→21:52)
[2017-12-28] MEDS: CARBIDOPA/LEVODOPA 25-100 MG TABLET PO SCH ×2 (09:14→21:53)
[2017-12-28] MEDS: CLOPIDOGREL 75 MG TABLET PO SCH (09:14)
[2017-12-28] MEDS: PANTOPRAZOLE 40 MG TABLET PO SCH (09:14)
[2017-12-28] MEDS: amLODIPine 5 MG TABLET PO SCH (09:14)
[2017-12-28] MEDS: POLYETHYLENE GLYCOL POWDER 17 GM PACK PO SCH (09:15)
[2017-12-28] MEDS: SODIUM HYPOCHLORITE 0.25% IRRIG 473 ML BOTTLE TOP SCH (18:51)
[2017-12-28] MEDS: INSULIN GLARGINE 100 UNIT/ML SUBCUT SCH (21:52)
[2017-12-28] MEDS: TRAVOPROST 0.004% OPH SOLN 2.5 ML BOTTLE BOTH EYES SCH (21:53)
[2017-12-29] MEDS: POLYETHYLENE GLYCOL POWDER 17 GM PACK PO SCH (08:29)
[2017-12-29] MEDS: INSULIN REGULAR 100 UNIT/ML SUBCUT SCH (08:29)
[2017-12-29] MEDS: ASPIRIN EC 81 MG TABLET PO SCH (08:30)
[2017-12-29] MEDS: CLOPIDOGREL 75 MG TABLET PO SCH (08:30)
[2017-12-29] MEDS: CARBIDOPA/LEVODOPA 25-100 MG TABLET PO SCH (08:30)
[2017-12-29] MEDS: CILOSTAZOL 50 MG TABLET PO SCH (08:30)
[2017-12-29] MEDS: RASAGILINE 0.5 MG TABLET PO SCH (08:30)
[2017-12-29] MEDS: CHOLECALCIFEROL 1,000 UNIT TABLET PO SCH (08:30)
[2017-12-29] MEDS: PRAMIPEXOLE 1 MG TABLET PO SCH (08:30)
[2017-12-29] MEDS: ROSUVASTATIN 20 MG TABLET PO SCH (08:30)
[2017-12-29] MEDS: amLODIPine 5 MG TABLET PO SCH (08:30)
[2017-12-29] MEDS: ENOXAPARIN 30 MG/0.3 ML SYRINGE SUBCUT SCH (08:30)
[2017-12-29] MEDS: PANTOPRAZOLE 40 MG TABLET PO SCH (08:30)
[2017-12-29] MEDS: SODIUM HYPOCHLORITE 0.25% IRRIG 473 ML BOTTLE TOP SCH (08:31)
[2017-12-29 09:28] VITALS: BP 143/67
== END 2017-12-29 11:25 | disposition swing bed (61) | DRG 240 ==
LOC: N.5E 19:25
PROVIDERS: ADMIT Surgery; ATTEND Surgery